=== PATIENT | male | born 1970 | race Hispanic/Latino ===

== ENCOUNTER → 2017-01-14 | Outpatient (CLI) | payer OTHER ==
--- NOTE | 2017-01-14 13:43 | Diagnostic Imaging Report ---
CLINICAL INDICATION: Patient with diabetes mellitus. EXAM: Ultrasound of both kidneys. COMPARISON: None. FINDINGS: Both kidneys are normal in size, shape, echogenicity and cortical thickness without hydronephrosis, stones, or focal lesions with the right and left kidneys measuring 9.4 cm and 10.2 cm in their craniocaudal dimensions, respectively. The visualized portion of the bladder is unremarkable. IMPRESSION: Unremarkable bilateral renal ultrasound. Dictated by: Dictated on workstation # [id number]
== END ==
LOC: RAD 12:30
PROVIDERS: ATTEND Nurse Practitioner Family
DX: E11.21 Type 2 diabetes mellitus with diabetic nephropathy (principal)
CPT/HCPCS: 76770

== ENCOUNTER → 2017-03-13 | Outpatient (CLI) | payer OTHER | LOC: CARD 11:00 | PROVIDERS: ATTEND Internal Medicine Cardiovascular Disease | DX: E78.2 Mixed hyperlipidemia (principal) | CPT/HCPCS: 93306 ==